=== PATIENT | female | born 1985 | race Caucasian/White ===

== ENCOUNTER 2019-09-02 17:25 | Emergency (ER) | payer OTHER ==
[~2019-09-02] VITALS: Ht 165.1 cm; Wt 61.2 kg
[2019-09-02 17:37] VITALS: BP 100/67
--- NOTE | 2019-09-02 17:44 | NUR ---
PT TAKEN TO BED 7.
--- NOTE | 2019-09-02 17:55 | NUR ---
PT C/O LEFT-SIDED ABDOMINAL PAIN RADIATING TO LEFT FLANK AREA, RECTAL BLEEDING, AND CONSTIPATION ALTERNATIVELY WITH DIARRHEA INTERMITTENT X 2 YEARS. SX GOT WORSE TODAY AT WORK. LAST BM WAS ONE WEEK AGO. PT STATES SHE HAD A COLONOSCOPY DONE 2 YEARS AGO AND RESULTS CAME BACK NEGATIVE. APPT NEXT WEEK WITH GI SPECIALIST. PT ALSO REPORTS FATHER HAD COLON CANCER AND MOTHER HAS IBS. PATIENT STATES PAIN OF 5/10 AT THIS TIME; VSS; PATIENT POSITIONED FOR COMFORT; HOB ELEVATED; BEDRAILS UP X1; BED DOWN. ER MD MADE AWARE OF PT STATUS.
--- NOTE | 2019-09-02 18:14 | NUR ---
Patient being evaluated by physician at bedside.
--- NOTE | 2019-09-02 18:45 | NUR ---
CHAPERONED DR LAURA FOR RECTAL EXAM, PT TOLERATED WELL AND POSITIONED TO COMFORT AFTER.
[2019-09-02 18:59] LABS: APPEARANCE,URINE CLEAR (CLEAR); BILIRUBIN,URINE NEGATIVE (NEGATIVE); BLOOD, URINE TRACE-L (NEGATIVE); COLOR,URINE YELLOW (YELLOW); LEUKOCYTE ESTERASE ,URINE NEGATIVE (NEGATIVE); NITRITE, URINE POSITIVE (NEGATIVE); PH,URINE 6.5 (5.0-9.0); UGLUCOSE NEGATIVE (NEGATIVE)
[2019-09-02 19:19] LABS: BASOPHILS % (AUTO) 0.9 % (0.0-2.0); EOSINOPHILS # (AUTO) 0.4 K/uL (0-0.4); EOSINOPHILS % (AUTO) 7.7 % (0.0-4.0); HEMATOCRIT 40.3 % (36-48); HEMOGLOBIN 13.1 g/dL (12.0-16.0); LYMPHOCYTES # (AUTO) 1.5 K/uL (2.5-16.5); LYMPHOCYTES % (AUTO) 31.7 % (20.5-51.1); MEAN CORPUSCULAR HEMOGLOBIN 28 pg (27-31); MEAN CORPUSCULAR HGB CONC 33 g/dL (33-37); MEAN CORPUSCULAR VOLUME 85.4 fL (80-94); MONOCYTES # (AUTO) 0.4 K/uL (0.8-1.0); MONOCYTES % (AUTO) 8.2 % (1.7-9.3); NEUTROPHILS # (AUTO) 2.4 K/uL (1.8-7.7); NEUTROPHILS % (AUTO) 51.5 % (42.2-75.2); PLATELET COUNT (AUTO) 266 K/uL (140-450); RED BLOOD CELL COUNT(AUTO) 4.72 MIL/uL (4.20-5.40); RED CELL DISTRIBUTION WIDTH 13.5 % (11.6-13.7); WHITE BLOOD COUNT (AUTO) 4.7 K/uL (4.8-10.8)
--- NOTE | 2019-09-02 19:19 | NUR ---
Pt report given to ANDRIY Alvarez. Transfer of care at this time.
[2019-09-02 19:29] LABS: RBC,URINE 0-5 /HPF (0-5); WBC,URINE 0 /HPF (0-5)
[2019-09-02] MEDS ORDERED: DICYCLOMINE HCL LIQUID 20 MG, ALUMINUM HYD/MAG/SIMETHICONE 30 ML, LIDOCAINE VISCOUS 2% ... PO ONE ×3 (19:30)
[2019-09-02] MEDS ORDERED: PANTOPRAZOLE 40 MG TABEC PO ONE (19:30)
[2019-09-02 19:31] LABS: ANION GAP 11.5 (8-16); CARBON DIOXIDE 28.6 mmol/L (21-32); POTASSIUM 4.1 mmol/L (3.5-5.1)
[2019-09-02 19:32] LABS: CREATININE 0.9 mg/dL (0.6-1.3)
[2019-09-02 20:10] VITALS: BP 105/60
--- NOTE | 2019-09-02 20:10 | NUR ---
Patient discharged with v/s stable. Written and verbal after care instructions given and explained. Patient alert, oriented and verbalized understanding of instructions. Ambulatory with steady gait. All questions addressed prior to discharge. ID band removed. Patient advised to follow up with PMD. Rx of OMEPRAZOLE; FLEET DISPOSABLE RECTAL ENEMA given. Patient educated on indication of medication including possible reaction and side effects. Opportunity to ask questions provided and answered.
== END 2019-09-02 20:10 | disposition home or self-care (01) ==
LOC: MED 17:25
DX: K59.00 Constipation, unspecified (principal); K92.2 Gastrointestinal hemorrhage, unspecified
CPT/HCPCS: 36415; 74018; 80048; 81001; 81025; 85025; 99284; Q0092

== ENCOUNTER 2019-10-13 11:52 | Emergency (ER) | payer OTHER ==
[~2019-10-13] VITALS: Ht 165.1 cm; Wt 60.8 kg
[2019-10-13 12:12] VITALS: BP 104/68
--- NOTE | 2019-10-13 12:20 | NUR ---
PT AMBULATED TO RESTROOM WITH STEADY GAIT
--- NOTE | 2019-10-13 12:23 | NUR ---
34 Y/O FEMALE PRESENTING WITH C/C OF LUQ; LLQ ABDONIMAL PAIN 9/10, SHARP; THROBBING. PT CONSTIPATED X4 DAYS. PER PT "I WAS DX WITH COLON CA STAGE4 WHEN FIRST COLONOSCOPY WAS DONE, WHEN 2ND COLONOSCOPY DONE THERE WAS NO MORE" PER PT PAIN HAS BEEN CONSISTENT [id number]; PER PT BLOOD IN URINE X1 MONTH. PT NKA. NO MEDICAL HX. RX MIRALAX AND STOOL SOFTNERS PRN. PT ONLY NAUSEA; NO V/D. SIDE RAIL X1. BOWEL SOUNDS HYPOACTIVE.
--- NOTE | 2019-10-13 12:24 | NUR ---
PT AMBULATED FROM RESTTOOM BACK TO BED 12 WITH STEADY GAIT
--- NOTE | 2019-10-13 13:13 | NUR ---
PT RESTING IN BED, DENIES ANY NEEDS AT THIS TIME.
--- NOTE | 2019-10-13 13:22 | NUR ---
PT RESTING IN BED, SIDE RAIL X1
--- NOTE | 2019-10-13 13:35 | NUR ---
LAB AT BEDSIDE
[2019-10-13 13:48] LABS: BASOPHILS % (AUTO) 0.5 % (0.0-2.0); EOSINOPHILS # (AUTO) 0.2 K/uL (0-0.4); EOSINOPHILS % (AUTO) 3.8 % (0.0-4.0); HEMATOCRIT 41.8 % (36-48); HEMOGLOBIN 13.6 g/dL (12.0-16.0); LYMPHOCYTES # (AUTO) 1.5 K/uL (2.5-16.5); LYMPHOCYTES % (AUTO) 23.5 % (20.5-51.1); MEAN CORPUSCULAR HEMOGLOBIN 27 pg (27-31); MEAN CORPUSCULAR HGB CONC 33 g/dL (33-37); MEAN CORPUSCULAR VOLUME 84.1 fL (80-94); MONOCYTES # (AUTO) 0.5 K/uL (0.8-1.0); MONOCYTES % (AUTO) 7.4 % (1.7-9.3); NEUTROPHILS # (AUTO) 4.2 K/uL (1.8-7.7); NEUTROPHILS % (AUTO) 64.8 % (42.2-75.2); PLATELET COUNT (AUTO) 251 K/uL (140-450); RED BLOOD CELL COUNT(AUTO) 4.97 MIL/uL (4.20-5.40); WHITE BLOOD COUNT (AUTO) 6.5 K/uL (4.8-10.8)
[2019-10-13 14:00] LABS: CARBON DIOXIDE 26.5 mmol/L (21-32); CREATININE 1.1 mg/dL (0.6-1.3); POTASSIUM 4.5 mmol/L (3.5-5.1)
[2019-10-13 14:06] LABS: ALBUMIN 3.8 g/dL (3.4-5.0); TOTAL BILIRUBIN 0.8 mg/dL (0.0-1.0)
--- NOTE | 2019-10-13 14:11 | NUR ---
PT RESTING IN BED, SIDE RAIL X1
--- NOTE | 2019-10-13 14:49 | NUR ---
DR ALONZO AT BEDSIDE
[2019-10-13 14:54] VITALS: BP 111/70
== END 2019-10-13 14:54 | disposition home or self-care (01) ==
LOC: MED 11:52
DX: K62.5 Hemorrhage of anus and rectum (principal); Z85.038 Personal history of other malignant neoplasm of large intestine
CPT/HCPCS: 36415; 80053; 81002; 81025; 83690; 85025; 99283